=== PATIENT | male | born 1965 | race Caucasian/White ===

== ENCOUNTER 2020-11-10 08:19 | Emergency (ER) | payer MEDICAID ==
[~2020-11-10] VITALS: Ht 177.8 cm; Wt 100.0 kg
[~2020-11-10 08:19] MED LIST: ERGO400T7 PO; HYDR-4353 PO
[2020-11-10 08:24] VITALS: BP 129/89
== END 2020-11-10 09:05 | disposition home or self-care (01) ==
LOC: ER 08:20
DX: F10.129 Alcohol abuse with intoxication, unspecified (principal); R19.7 Diarrhea, unspecified; Z72.821 Inadequate sleep hygiene; Z79.899 Other long term (current) drug therapy
CPT/HCPCS: 99283